=== PATIENT | male | born 1965 | race Caucasian/White ===

== ENCOUNTER 2016-06-14 06:34 | Inpatient (IN) | payer OTHER ==
[2016-06-06 15:12] LABS: HEMATOCRIT 39.8 % (40.0-51.0); HEMOGLOBIN 13.5 g/dL (13.6-17.8)
--- NOTE | ~2016-06-14 | OP ---
Record Of Operation [facility] [address] [place]. [address] NAME: JULIANA WILDER : 67 STATUS : ADM IN PAT#: [id number] AGE: 51 ADM/REG DATE : 06/14/16 MR#: [id number] REPORT SERV DATE: 06/14/16 DICTATED BY: OMER GUZMAN DATE: 06/14/16 REPORT STATUS : Draft TRANSCRIBED BY: MODL DATE: 06/14/16 DATE OF PROCEDURE: 06/14/2016 PREOPERATIVE DIAGNOSIS: Prostate cancer. POSTOPERATIVE DIAGNOSIS: Prostate cancer. PROCEDURE: Robotic-assisted laparoscopic radical prostatectomy. SURGEON: Omer Guzman M.D. DRIVER'S EDUCATION INSTRUCTOR: ANNMARIE Espinoza. ANESTHESIA: General. PREOPERATIVE INDICATIONS: A 51-year-old male presented with a positive family history of prostate cancer and a PSA of 3.8 in 05/2011. Biopsies disclosed a [place] 6 prostate cancer involving 1 core. He elected active surveillance. He was followed with PSA surveillance at 6-month intervals and annual MRI. At his recent surveillance MRI, he was shown to have evidence of progression of disease with an index lesion at the right mid gland. MRI- targeted biopsy identified a [place] 7, 3+4 prostate cancer in 03/2016. PTEN suppression was intact and there was no overexpression of ERG fusion. There was no evidence of T3 disease or lymphadenopathy. In view of his progression, he elected to pursue definitive therapy preferring surgical management with a robotic approach. DESCRIPTION OF OPERATIVE PROCEDURE: Following adequate general anesthesia, the patient was placed in the modified lithotomy position, well padded and secured to the table, and placed in the steep Trendelenburg position. He was noted to be safely secured to the table and was returned to a level position, where he was prepped and draped in the usual sterile fashion. A 16-Sudanese catheter was placed into the bladder from the operative field. Pneumoperitoneum was achieved with Veress needle. A 12 mm port was placed in the left upper quadrant with the Optiview system. The camera was placed into the abdomen. The abdomen was inspected and there were no abnormal findings. Under direct vision, the four robotic ports were placed, as well as a left lower quadrant 5 mm port. The patient was returned to the Trendelenburg position and docked to the robot. The bladder was taken down by incising laterally along the median umbilical ligaments to the level of vas deferens bilaterally with the electrocautery silvano. The space of Retzius was developed bluntly. Fat was dissected off the anterior surface of the prostate sharply. The endopelvic fascia was incised bilaterally and the levator muscle was swept off the lateral surface of the prostate bilaterally. The dorsal vein complex was dissected out, controlled, and divided with an endovascular BRADEN stapler. The bladder neck was then incised at its junction with the base of the prostate with the electrocautery spatula. The bladder was entered. The catheter was grasped with a ProGrasp grasper and used for anterior retraction of the prostate. The posterior bladder neck was Record Of Operation [facility] [address] [facility] [place]. [address] NAME: JULIANA WILDER : 67 STATUS : ADM IN PAT#: [id number] AGE: 51 ADM/REG DATE : 06/14/16 MR#: [id number] REPORT SERV DATE: 06/14/16 DICTATED BY: OMER GUZMAN DATE: 06/14/16 REPORT STATUS : Draft TRANSCRIBED BY: [place] DATE: 06/14/16 developed and incised with the electrocautery spatula. A plane was bluntly developed between the posterior bladder neck and the prostate. Anterior Denonvilliers fascia was incised to expose the vas deferens and seminal vesicles. The vasa deferentia were dissected out bluntly, divided sharply, and the ends of the vas deferens grasped with the ProGrasp grasper for additional anterior retraction of the prostate. The seminal vesicles were dissected out bluntly. Their blood supply controlled with interlocking clips and then divided sharply at their base. The bladder neck was inspected and did require some minor reconstruction with two [id number] 3-0 Vicryl sutures at the 3 and 9 o'clock position taking care to avoid the ureteral orifices. Posterior Denonvilliers fascia was incised and a plane was bluntly developed in the rectum and prostate. The levator fascia was incised bilaterally and the neurovascular bundles bluntly and easily dissected away from the posterolateral surface of the prostate bilaterally. The pedicles were controlled with interlocking clips and divided sharply with round-tip scissors. The urethra was dissected out with the round-tip scissors. The dorsal vein complex was secured to the pubic periosteum with a [id number] 2-0 Monocryl suture. The urethra was then divided sharply at the prostatourethral junction. The catheter was withdrawn. The posterior urethra was divided, as well as the remaining apical attachments and the prostate was freed. It was placed in an EndoCatch sac and placed out of the view of the operative field. The pelvis was irrigated with sterile water and antibiotic solution, carefully inspected. There was excellent hemostasis and no apparent rectal injury. Posterior Denonvilliers fascia was reapproximated to the posterior urethral plate with a running 3-0 V-Loc suture in a Gaetano stitch fashion. The urethrovesical anastomosis was then performed with a running 3- 0 V-Loc suture over a 20-Sudanese catheter. The balloon was filled with 10 mL of sterile water. The bladder was irrigated with sterile water and there was watertight anastomosis. A 19 Jake drain was passed through one of the robotic ports and placed into the pelvis. The port was removed, its exit site demonstrating good hemostasis. The drain was fixed to the skin with 2-0 Prolene suture. The patient was de-docked from the robot and returned to a level position. The remaining trocars were removed under direct vision, their exit sites demonstrating good hemostasis. The periumbilical port was used to guide a transverse fascial incision to allow intact retrieval of the specimen. This was closed with 6 interrupted #1 Ethibond sutures. The periumbilical wound port sites were irrigated with antibiotic solution and skin edges reapproximated with skin clips. The drain was left to grenade suction. The catheter was left to gravity drainage. Bandages were applied and the procedure was concluded. He was awakened from his anesthesia, had tolerated it well, and transferred to the recovery room in satisfactory condition. DANITA/HOUSTON Omer Guzman M.D. / [id number] Record Of Operation [address] [address] NAME: JULIANA WILDER : 67 STATUS : ADM IN PAT#: [id number] AGE: 51 ADM/REG DATE : 06/14/16 MR#: [id number] REPORT SERV DATE: 06/14/16 DICTATED BY: OMER GUZMAN DATE: 06/14/16 REPORT STATUS : Draft TRANSCRIBED BY: MODL DATE: 06/14/16 CC: Omer Guzman M.D.
[~2016-06-14 06:34] MED LIST: CIALIS5 MG PO; GOODY'S EX-STR1 EAC1 PO; STOOL SOFTEN240 MG PO
[2016-06-14 12:42] LABS: HEMATOCRIT 40.3 % (40.0-51.0); HEMOGLOBIN 14.1 g/dL (13.6-17.8)
[2016-06-14 12:54] LABS: CREATININE 1.29 MG/DL (0.70-1.30); POTASSIUM, SERUM 5.6 MMOL/L (3.5-5.3)
== END 2016-06-15 14:45 | disposition home or self-care (01) | DRG 708 ==
LOC: SDC/OF 06:34 → PACU 12:20 → 4SO 14:35
PROVIDERS: Urology
PROC: 0VTQ4ZZ Resection of Bilateral Vas Deferens, Percutaneous Endoscopic Approach (ICD-10-PCS; principal; 2016-06-14 07:30)
PROC: 8E0W4CZ Robotic Assisted Procedure of Trunk Region, Percutaneous Endoscopic Approach (ICD-10-PCS; principal; 2016-06-14 07:30)
PROC: 0VT34ZZ Resection of Bilateral Seminal Vesicles, Percutaneous Endoscopic Approach (ICD-10-PCS; principal; 2016-06-14 07:30)
PROC: 0VT04ZZ Resection of Prostate, Percutaneous Endoscopic Approach (ICD-10-PCS; principal; 2016-06-14 07:30)
DX: C61 Malignant neoplasm of prostate (principal); Z87.891 Personal history of nicotine dependence; Z80.42 Family history of malignant neoplasm of prostate; Z98.890 Other specified postprocedural states
CPT/HCPCS: 82565; 84132; 85014; 85018; 88309; 93005; A9270-GY; J0690; J1885; J2250; J2270; J2405; J2710; J2795; J3010